=== PATIENT | male | born 1955 | race Caucasian/White ===

== ENCOUNTER 2020-10-13 13:03 | Inpatient (IN) | payer OTHER ==
[~2020-10-13] VITALS: Ht 170.2 cm; Wt 81.2 kg
[2020-10-13 13:39] LABS: BASOPHILS % (AUTO) 0.3 % (0.0-5.0); EOSINOPHILS % (AUTO) 0.5 % (0.0-8.0); LYMPHOCYTES % (AUTO) 10.7 % (21.0-51.0); MEAN CORPUSCULAR HEMOGLOBIN 30.7 pg (27.0-33.0); MEAN CORPUSCULAR HGB CONC 35.7 g/dL (32.0-36.0); MONOCYTES % (AUTO) 9.2 % (3.0-13.0); NEUTROPHILS % (AUTO) 78.4 % (40.0-77.0); PLATELET COUNT (AUTO) 248 K/uL (130-400); RED BLOOD CELL COUNT(AUTO) 5.35 MIL/uL (4.50-6.20); RED CELL DISTRIBUTION WIDTH 12.3 % (11.0-15.5); WHITE BLOOD COUNT (AUTO) 10.4 K/uL (4.8-10.8)
[2020-10-13 13:42] LABS: APPEARANCE,URINE Clear (CLEAR); BILIRUBIN,URINE Negative (NEGATIVE); COLOR,URINE Yellow (YELLOW); GLUCOSE, URINE (UA) >=1000 mg/dL (NEGATIVE); KETONES,URINE Trace mg/dL (NEGATIVE); LEUKOCYTE ESTERASE ,URINE Negative (NEGATIVE); NITRATE,URINE Negative (NEGATIVE); OCCULT BLOOD,URINE Negative (NEGATIVE); PH,URINE 6.5 (5.0-8.0); PROTEIN,URINE Negative (NEGATIVE); UROBILINOGEN,URINE 0.2 mg/dL (0.2-1.0)
[2020-10-13 13:53] LABS: BACTERIA,URINE Rare /HPF (None Seen); RBC,URINE 0-1 /HPF (0-1); SQUAMOUS EPITHELIAL CELL,UR Rare /HPF (0-2); WBC,URINE 0-1 /HPF (0-1)
[2020-10-13 13:54] LABS: CREATININE 1.5 mg/dL (0.5-1.5); POTASSIUM 4.3 mmol/L (3.5-5.1)
[2020-10-13 13:58] LABS: ALBUMIN 3.8 g/dL (3.5-5.0); BILIRUBIN,TOTAL 1.1 mg/dL (0.2-1.0); TOTAL PROTEIN, SERUM 7.4 g/dL (6.0-8.3)
[2020-10-13] MEDS ORDERED: ONDANSETRON HCL 4 MG/2 ML VIAL ONE (14:39)
[2020-10-13] MEDS ORDERED: MORPHINE SULFATE 4 MG/1ML SYG ONE (14:40)
[2020-10-13 15:10] LABS: ABG BASE EXCESS 0.2 mmol/L (-2.0-3.0); ABG HCO3 23.8 mmol/L (21.0-28.0); ABG OXYGEN SATURATION 96.3 % (95.0-99.0); ABG PCO2 36 mmHg (35-48)
[2020-10-13] MEDS ORDERED: KETOROLAC TROMETHAMINE 30MG/ML ONE (17:09)
[2020-10-13] MEDS ORDERED: ZOSYN 3.375GM+NS 50ML 50 ML IV ONE (17:58)
[2020-10-13] MEDS: ZOSYN 3.375GM+NS 50ML 50 ML IV SCH (18:00)
[2020-10-13] MEDS ORDERED: MAG HYDROX/AL HYDROX/SIMETH ES 30 ML SUSP UDCUP PO PRN (18:15)
[2020-10-13] MEDS ORDERED: DiphenhydrAMINE HCL 50 MG/ML VIAL IV PRN (18:15)
[2020-10-13] MEDS ORDERED: MORPHINE SULFATE 2 MG/ML 1ML SYG IVP PRN (18:15)
[2020-10-13] MEDS ORDERED: ZOLPIDEM TARTRATE 5 MG TAB PO PRN (18:15)
[2020-10-13] MEDS ORDERED: KETOROLAC TROMETHAMINE 15MG/ML IV PRN (18:15)
[2020-10-13] MEDS ORDERED: ACETAMINOPHEN 325 MG TAB PO PRN (18:15)
[2020-10-13 20:05] LABS: HEMOGLOBIN A1C 8.8 % (4.0-6.0)
[2020-10-13] MEDS ORDERED: FAMOTIDINE/PF 20 MG/2 ML VIAL IV ONE (20:28)
[2020-10-13] MEDS ORDERED: FAMOTIDINE/PF 20 MG/2 ML VIAL IV SCH (21:00)
[2020-10-14] VITALS (16 sets, daily range): BP systolic 106–169; BP diastolic 53–86
[2020-10-14] MEDS: ZOSYN 3.375GM+NS 50ML 50 ML IV SCH ×2 (02:00→10:00)
[2020-10-14] MEDS ORDERED: ZOSYN 3.375GM+NS 50ML 50 ML IV ONE (07:18)
[2020-10-14 10:13] LABS: HEMATOCRIT 44.3 % (42-54); MEAN CORPUSCULAR HEMOGLOBIN 30.1 pg (27.0-33.0); MEAN CORPUSCULAR HGB CONC 34.5 g/dL (32.0-36.0); RED BLOOD CELL COUNT(AUTO) 5.09 MIL/uL (4.50-6.20); RED CELL DISTRIBUTION WIDTH 12.5 % (11.0-15.5); WHITE BLOOD COUNT (AUTO) 6.9 K/uL (4.8-10.8)
[2020-10-14 10:28] LABS: CREATININE 1.8 mg/dL (0.5-1.5); MAGNESIUM 1.9 mg/dL (1.80-2.40); POTASSIUM 4.2 mmol/L (3.5-5.1)
[2020-10-14 10:55] LABS: INR 1.04 (0.85-1.15); PROTHROMBIN TIME 11.1 SEC (9.6-11.6)
[2020-10-14 10:57] LABS: PARTIAL THROMBOPLASTIN TIME 26.3 SEC (26.3-35.5)
[2020-10-14] MEDS ORDERED: SODIUM CHLORIDE 0.9% 1000ML 1,000 ML IV SCH (11:30)
[2020-10-14] MEDS ORDERED: SUCCINYLCHOLINE 200MG/10ML SYR ONE ×2 (13:29→13:31)
[2020-10-14] MEDS ORDERED: LIDOCAINE PF 2% 5ML ABBOJECT ONE (13:29)
[2020-10-14] MEDS ORDERED: DEXAMETHASONE SOD PHOSPHATE 10MG/ML 1ML VIAL ONE (13:29)
[2020-10-14] MEDS ORDERED: MIDAZOLAM HCL 1 MG/ML 2ML VIAL ONE (13:30)
[2020-10-14] MEDS ORDERED: FENTANYL CITRATE PF 50 MCG/1 ML 2ML VIAL ONE (13:30)
[2020-10-14] MEDS ORDERED: PROPOFOL 10 MG/ML 20ML VIAL IV ONE (13:30)
[2020-10-14] MEDS ORDERED: ONDANSETRON HCL 4 MG/2 ML VIAL ONE (13:30)
[2020-10-14] MEDS ORDERED: ROCURONIUM 10MG/1ML SYR 10 MG/ML ML ONE (13:31)
[2020-10-14] MEDS ORDERED: MEPERIDINE-PF 25 MG/ML SYG ONE (13:32)
[2020-10-14] MEDS ORDERED: IOHEXOL-350 50ML VIAL IV ONE (14:57)
[2020-10-14] MEDS ORDERED: GLYCOPYRROLATE 1 MG/5 ML SYRINGE ONE (15:34)
[2020-10-14] MEDS ORDERED: NEOSTIGMINE 5MG/5ML SYR IV ONE (15:34)
[2020-10-14] MEDS ORDERED: EPHEDRINE SULFATE 50 MG/ML AMPULE ONE (16:29)
== END 2020-10-14 20:34 | disposition home or self-care (01) | DRG 661 ==
LOC: EDH 13:03 → EDHIP 18:06 → 3BH 10-14 08:26
PROVIDERS: ADMIT Internal Medicine; ATTEND Internal Medicine
PROC: 0T778DZ Dilation of Left Ureter with Intraluminal Device, Via Natural or Artificial Opening Endoscopic (ICD-10-PCS; principal; 2020-10-14 16:05)
PROC: 0TC78ZZ Extirpation of Matter from Left Ureter, Via Natural or Artificial Opening Endoscopic (ICD-10-PCS; 2020-10-14 16:05)
DX: N13.2 Hydronephrosis with renal and ureteral calculous obstruction (principal); E11.9 Type 2 diabetes mellitus without complications; I10 Essential (primary) hypertension; Z87.442 Personal history of urinary calculi
CPT/HCPCS: 36415; 36600; 74018; 74176; 80048; 80053; 81001; 82150; 82360; 82803; 82948; 83036; 83690; 83735; 84484; 85025; 85027; 85610; 85730; 93005; A4344; C1758; C1769; C2617; G0378; J0330; J1100; J1885; J2001; J2175; J2250; J2270; J2405; J2543; J2704; J2710; J3010; J3490; J7030; Q9967

== ENCOUNTER 2024-10-23 17:33 | Emergency (ER) | payer MEDICARE, OTHER ==
[~2024-10-23] VITALS: Ht 170.2 cm; Wt 80.7 kg
--- NOTE | 2024-10-23 18:35 | NUR ---
LAC-2.3 ERMD MADE AWARE
[2024-10-23 18:37] LABS: BASOPHILS # (AUTO) 0.07 K/uL (0.00-0.20); BASOPHILS % (AUTO) 0.9 % (0.0-5.0); EOSINOPHILS # (AUTO) 0.17 K/uL (0.00-0.70); EOSINOPHILS % (AUTO) 2.2 % (0.0-8.0); HEMATOCRIT 46.5 % (42-54); IMMATURE GRANULOCYTE ABSOLUTE 0.03 K/uL (0-1); LYMPHOCYTES # (AUTO) 1.6 K/uL (1.0-4.8); LYMPHOCYTES % (AUTO) 20.8 % (21.0-51.0); MEAN CORPUSCULAR HEMOGLOBIN 30.8 pg (27.0-33.0); MEAN CORPUSCULAR VOLUME 90.6 fL (79-99); MONOCYTES # (AUTO) 0.8 K/uL (0.1-1.0); NEUTROPHILS # (AUTO) 5.1 K/uL (1.8-7.7); NEUTROPHILS % (AUTO) 65.7 % (40.0-77.0); PLATELET COUNT (AUTO) 211 K/uL (130-400); RED BLOOD CELL COUNT(AUTO) 5.13 MIL/uL (4.50-6.20); RED CELL DISTRIBUTION WIDTH 12.6 % (11.0-15.5); WHITE BLOOD COUNT (AUTO) 7.7 K/uL (4.8-10.8)
--- NOTE | 2024-10-23 18:40 | HMCIMG ---
TOE(S) 2+VWS RT HISTORY: Right fifth toe COMPARISON: None TECHNIQUE: 3 images of right fifth toe were obtained. FINDINGS: There is no acute displaced fracture or dislocation. Degenerative changes are seen. IMPRESSION: 1. Findings as described above.
[2024-10-23 18:45] LABS: CREATININE 0.8 mg/dL (0.5-1.3); POTASSIUM 4.3 mmol/L (3.5-5.1)
[2024-10-23] MEDS: 0.9%NACL 1000ML 1,000 ML IV ONE (19:40)
[2024-10-23] MEDS: cefTRIAXone 1G VIAL IVPB ONE (19:40)
[2024-10-23] MEDS ORDERED: TERB30CR8 TP (20:20)
[2024-10-23] MEDS ORDERED: SULF1TAB42 PO (20:20)
--- NOTE | 2024-10-23 20:21 | ERN ---
General Chief Complaint: FOOT INJURY/PAIN Stated Complaint: PAIN ON RIGHT FOOT TOE Time Seen by MD: 17:35 Time Seen by Midlevel: 17:35 Source: patient History of Present Illness Initial Comments Patient is a 68-year-old male with a past medical history of type 2 diabetes and hypertension presenting to the emergency department pain and redness to his right pinky toe. He states this pain and redness has been intermittent in nature and has been ongoing for the last several months. 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 Today he noticed an increase in redness to the area so he decided to report to the ER for further evaluation. He specifically denies any fever, chills, or any other symptoms at this time. Denies having any history of gout. Allergies: Coded Allergies: No Known Allergies (Verified Allergy, Unknown, 10/13/20) Home Meds Active Scripts Terbinafine HCl (Terbinafine HCl) 1 % Cream..g., 1 APPL TP BID for 14 Days, #30 GM 0 Refills Prov:MIGUEL SOLARES 10/23/24 Sulfamethoxazole/Trimethoprim (Bactrim Ds Tablet) 800 Mg-160 Mg Tablet, 1 TAB PO BID for 7 Days, #14 TAB 0 Refills Prov:MIGUEL SOLARES 10/23/24 Past Medical History Past Medical History: Diabetes-Type II, High Cholesterol, Hypertension, Other Medical History Other: NARCALEPSY Past Surgical History: Other ROS Dictation CONSTITUTIONAL: Negative except for HPI HEAD/FACE: Negative except for HPI EENT: Negative except for HPI RESPIRATORY: Negative except for HPI GASTROINTESTINAL/ABDOMINAL: Negative except for HPI GENITOURINARY: Negative except for HPI MUSCULOSKELETAL: Negative except for HPI INTEGUMENTARY: Negative except for HPI NEUROLOGICAL/PSYCH: Negative except for HPI HEMATOLOGIC/LYMPHATIC: Negative except for HPI All Systems Negative, Except as noted above. 13 point review of systems assessed and all negative except for above. Physical Exam Physical Exam Dictation Vital Signs reviewed General Appearance: Alert, oriented x 3, no acute distress, well developed, nourished. Head and Face: non-traumatic. Eyes: PERRL, pink conjunctivas, eyelid no trauma, anterior chamber with arcus senilis. Ears: Pinnas intact and no signs of trauma or erythema ear canals clear and no discharge TM no erythema Nose: No discharge, no bleeding. Oropharynx: Mouth normal, tongue pink, pharynx clear,no erythema, tonsils no exudates, no abscesses noted, mucous membrane moist Neck: Supple, non-tender, no thyromegaly, no masses, no JVD, no bruits Breast:Deferred Chest:No tenderness, no crepitus, no paradoxical movement, no retractions Lungs:Clear, well-ventilated, symmetric, no rales, no wheezing, no rhonchi, no stridor, good breath sounds bilaterally Heart: Regular rate, regular rhythm, no murmur, no gallops Vascular: no peripheral edema, Abdomen: Soft, positive bowel sounds, nondistended, no guarding, nontender, no rebound, no masses no hepatomegaly, no splenomegaly, no Chung's sign, no hernias. Rectal: Deferred Genital: Deferred Neurological: Normal speech, motor function intact, sensory function intact Musculoskeletal: Neck nontender, full range of motion, back nontender, full range of motion, Extremities: Erythema to the right 5th toe Skin: Color pink, dry, no turgor, no rash, no lacerations, no abrasions, no contusions. Lymphatic: Deferred Results Laboratory and Microbiology Lab and Micro Result Laboratory Tests Test 10/23/24 18:10 10/23/24 19:30 White Blood Count 7.7 K/uL (4.8-10.8) Red Blood Count 5.13 MIL/uL (4.50-6.20) Hemoglobin 15.8 g/dL (14.0-18.0) Hematocrit 46.5 % (42-54) Mean Corpuscular Volume 90.6 fL (79-99) Mean Corpuscular Hemoglobin 30.8 pg (27.0-33.0) Mean Corpuscular Hemoglobin Concent 34.0 g/dL (32.0-36.0) Red Cell Distribution Width 12.6 % (11.0-15.5) Platelet Count 211 K/uL (130-400) Mean Platelet Volume 10.5 fL (7.5-10.5) Immature Granulocyte % (Auto) 0.4 % (0-1) Neutrophils (%) (Auto) 65.7 % (40.0-77.0) Lymphocytes (%) (Auto) 20.8 % (21.0-51.0) L Monocytes (%) (Auto) 10.0 % (3.0-13.0) Eosinophils (%) (Auto) 2.2 % (0.0-8.0) Basophils (%) (Auto) 0.9 % (0.0-5.0) Neutrophils # (Auto) 5.1 K/uL (1.8-7.7) Lymphocytes # (Auto) 1.6 K/uL (1.0-4.8) Monocytes # (Auto) 0.8 K/uL (0.1-1.0) Eosinophils # (Auto) 0.17 K/uL (0.00-0.70) Basophils # (Auto) 0.07 K/uL (0.00-0.20) Absolute Immature Granulocyte (auto 0.03 K/uL (0-1) Nucleated Red Blood Cells 0.0 % (0.0-0.19) Sodium Level 137 mmol/L (136-145) Potassium Level 4.3 mmol/L (3.5-5.1) Chloride Level 105 mmol/L (101-111) Carbon Dioxide Level 23 mmol/L (21-32) Blood Urea Nitrogen 20 mg/dL (7-18) H Creatinine 0.8 mg/dL (0.5-1.3) Glomerular Filtration Rate Calc 98 mL/min (>90) Random Glucose 242 mg/dL (70-105) H Lactic Acid Level 2.3 mmol/L (0.8-2.5) Total Calcium 8.9 mg/dL (8.5-10.1) Procalcitonin < 0.05 ng/mL (0.05-0.5) L Erythrocyte Sedimentation Rate 4 MM/HR (0-20) Labs Reviewed?: Yes MDM MDM: Patient is a 68-year-old male with a past medical history of type 2 diabetes and hypertension presenting to the emergency department pain and redness to his right pinky toe. He states this pain and redness has been intermittent in nature and has been ongoing for the last several months. 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 Today he noticed an increase in redness to the area so he decided to report to the ER for further evaluation. He specifically denies any fever, chills, or any other symptoms at this time. Denies having any history of gout. On physical examination patient is in no acute distress. His initial vital signs are stable. Patient is afebrile and nontoxic appearing. His right foot reveals some erythema overlying the right 5th toe. When the 4th and 5th toe there is some white discharge consistent with a fungal infection. Given his history of type 2 diabetes blood work was obtained to rule out systemic infection and osteomyelitis. His right foot x-ray does not show any acute fracture, dislocation, or evidence of osteomyelitis. His CBC shows no leukocytosis. His sed rate is normal. Lactic acid is slightly elevated. Patient was given 1 L of IV fluids. Patient was also given 1 g of Rocephin IV. It appears this is the start of cellulitis. Patient was given a prescription for Bactrim and terbinafine cream to treat for a possible fungal infection. Patient was advised to follow up with his primary care doctor in 2-3 days for repeat evaluation. Return to the ER for any new or worsening symptoms. Differential diagnosis: Cellulitis, osteomyelitis, fungal infection There are no social concerns with this patient. Prescription drug management Prescriptions will include: Bactrim, terbinafine cream Medical management and examination interpretation discussions were had by [facility] other qualified healthcare professionals as indicated for the patient's care. ED Course Orders Procedure Category Date Status Time Cbc With Differential LAB 10/23/24 Complete 17:47 Basic Metabolic Panel LAB 10/23/24 Complete 17:47 Lactic Acid LAB 10/23/24 Complete 17:47 Procalcitonin LAB 10/23/24 Complete 17:47 Toe(S) 2+Vws Rt RAD 10/23/24 Resulted 17:47 Erythrocyte LAB 10/23/24 Complete Sedimentation Rate 18:39 0.9%Nacl 1000ml (Ns PHA 10/23/24 Complete 1000ml) 19:30 Ceftriaxone 1g Vial PHA 10/23/24 Complete (Rocephine 1g Inj) 19:30 Current Medications Medications (Trade) Dose Ordered Sig/Jonny Route PRN Reason Start Time Stop Time Status Last Admin Dose Admin Ceftriaxone Sodium (ROCEphine 1G INJ) 1 gm ONCE ONCE IVPB 10/23/24 19:30 10/23/24 19:31 DC 10/23/24 19:40 Sodium Chloride 1,000 ml @ 0 mls/hr ONCE ONCE IV 10/23/24 19:30 10/23/24 19:31 DC 10/23/24 19:40 Vital Signs Date Time Temp Pulse Resp B/P (MAP) Pulse Ox O2 Delivery O2 Flow Rate FiO2 10/23/24 21:50 97.5 72 20 154/74 99 Room Air* 0 21 10/23/24 17:51 97.5 79 20 179/98 99 Room Air* 0 21 10/23/24 17:37 97.5 79 20 179/98 99 Room Air [facility] [address] [place] [address] IMAGING REPORT Signed PATIENT: JOSELYN ARSHAD MR#: [id number] : 1955 SEX: M AGE: 68 LOCATION: [facility] ORDER 47 STATUS: REG ER REPORT#: [id number] SERVICE 46 REASON: right 5th toe ORDERING PHYSICIAN: MIGUEL SOLARES PROCEDURE: TOES RT - TOE(S) 2+VWS RT TOE(S) 2+VWS RT HISTORY: Right fifth toe COMPARISON: None TECHNIQUE: 3 images of right fifth toe were obtained. FINDINGS: There is no acute displaced fracture or dislocation. Degenerative changes are seen. IMPRESSION: 1. Findings as described above. DICTATED BY: CHELSEA HERNANDEZ MD DATE: 10/23/241837 ELECTRONICALLY SIGNED BY: CHELSEA HERNANDEZ MD DATE: 10/23/241839 DX & DISP Disposition: Discharge Departure Impression: Primary Impression: Cellulitis of fifth toe, right Condition: Stable Scripts Terbinafine HCl (Terbinafine HCl) 1 % Cream..g. 1 APPL TP BID for 14 Days, #30 GM 0 Refills Prov: MIGUEL SOLARES 10/23/24 Sulfamethoxazole/Trimethoprim (Bactrim Ds Tablet) 800 Mg-160 Mg Tablet 1 TAB PO BID for 7 Days, #14 TAB 0 Refills Prov: MIGUEL SOLARES 10/23/24 Additional Instructions: Your blood work today is stable. It appears you were developing a an infection to your toe. You were given antibiotics in the emergency department. I have given you a prescription for oral antibiotics for outpatient. I have also given you a prescription for an antifungal cream which should help improve your symptoms over the next couple of days. Follow up with your primary care doctor in 2-3 days for repeat evaluation. If you develop any new or worsening symptoms please report to the ER for further evaluation. Referrals: BERTRAM TORREZ MD (PCP) Time of Disposition: 20:20 I have reviewed the case, and I agree with, Diagnosis and Plan I performed the substantive portion of the visit. I have reviewed and personally made and approve the management plan that is documented in the note by myself or the CASANDRA. I acknowledge for responsibility for the patient's management plan. MIGUEL SOLARES Oct 23, 2024 20:21
--- NOTE | 2024-10-23 20:29 | NUR ---
PENDING FLUID ADMINISTRATION BEFORE D/C
[2024-10-23 21:50] VITALS: BP 154/74; PULSE 72; RESP 20; TEMP 97.5; O2SAT 99
== END 2024-10-23 21:53 | disposition home or self-care (01) ==
LOC: EDH 17:33
DX: L03.031 Cellulitis of right toe (principal); E11.9 Type 2 diabetes mellitus without complications; E78.00 Pure hypercholesterolemia, unspecified; I10 Essential (primary) hypertension; Z79.899 Other long term (current) drug therapy; Z98.890 Other specified postprocedural states
CPT/HCPCS: 99284; 96374; 80048; 85025; 85651; 83605; 36415; 73660; 84145; J7030; J0696